=== PATIENT | female | born 1995 | race Caucasian/White ===

== ENCOUNTER 2017-02-06 16:53 | Emergency (ER) | payer OTHER ==
[~2017-02-06] VITALS: Ht 172.7 cm; Wt 70.0 kg
[2017-02-06 17:00] VITALS: TEMP 36.6; Ht 172.7 cm; Wt 70.0 kg
--- NOTE | 2017-02-06 17:49 | EMERGENCY ROOM VISIT NOTE ---
History Report prepared by Valentine: Patricia Fowler Under the Supervision of: Dr. Devyn Brenner M.D. First contact with patient: 16:55 Stated Complaint: ALCOHOL OVERDOSE History of Present Illness The patient is a 21 year old female who presents to the Emergency Room with complaints of an episode of alcohol intoxication occurring prior to arrival. The patient states that she was at the game with her boyfriend. She denies vomiting and being hurt today. The patient's boyfriend reports that they were out tailgating with friends and were drinking. He reports that when they walked to the stadium he noticed she was getting worse. He states that once they got in the stadium he lost her for a little due to the crowd. He states that he found her and decided to take her home. He reports that on the walk home she was getting worse. He denies the patient vomiting. History limited secondary to alcohol intoxication. Source of History: patient, spouse/significant other History Limited By: intoxication Onset: prior to arrival Position: other (global) Quality: other (global) Timing: other (episode) Review of Systems ROS unattainable secondary to alcohol intoxication. Past Medical & Surgical Medical Problems: (1) No Known Active Medical Problems Family History No pertinent family history Social History Alcohol Use: occasionally Marital Status: in relationship Housing Status: lives with roommate Occupation Status: [employer] student Current/Historical Medications Unable to Obtain Active Prescriptions or Reported Meds Physical Exam Vital Signs Date Time Temp Pulse Resp B/P (MAP) Pulse Ox O2 Delivery O2 Flow Rate FiO2 02/06/17 21:46 65 16 101/59 99 02/06/17 20:10 59 16 98/49 99 Room Air 02/06/17 19:37 74 02/06/17 18:27 63 18 88/55 99 Room Air 02/06/17 17:50 64 16 92/44 98 Room Air 02/06/17 17:00 36.6 130 18 150/108 99 Room Air Physical Exam GENERAL: Patient is in no acute distress. Smells of alcohol. Tearful and upset. HEENT: No acute trauma, normocephalic atraumatic, mucous membranes moist, no nasal congestion, no scleral icterus. Pupils equal and reactive to light. No obvious head trauma. NECK: No stridor, no adenopathy, no meningismus, trachea is midline. LUNGS: Clear to auscultation bilaterally, no wheeze, no rhonchi, breath sounds equal. HEART: Mildly tachycardic, no murmurs, rhythm is regular.. ABDOMEN: Soft, nontender, bowel sounds positive, no hernias, no peritonitis. EXTREMITIES: No cyanosis or edema, full range of motion of all the joints without pain or difficulty, no signs for acute trauma. NEUROLOGIC: Moderately intoxicated with alcohol, no acute motor or sensory deficits, no focal weakness. SKIN: No rash, no jaundice, no diaphoresis. Medical Decision & Procedures Laboratory Results 02/06/17 18:19 Test 02/06/17 18:19 Anion Gap 9.0 mmol/L (3-11) Est Creatinine Clear Calc Drug Dose 117.0 ml/min Estimated GFR () 127.7 Estimated GFR (Non- 110.2 BUN/Creatinine Ratio 11.8 (10-20) Calcium Level 8.6 mg/dl (8.5-10.1) Human Chorionic Gonadotropin, Qual NEG (NEG) Ethyl Alcohol mg/dL 208.0 mg/dl (0-3) Laboratory results reviewed by me. ED Course 1656: The patient was evaluated in room B12B. A complete history and physical exam was performed. 1754: The patient is asleep and cannot be woken up. Due to use of alcohol, we are going to run labs on the patient. 2127: Reevaluated the patient. Discussed results and discharge instructions: she verbalized understanding and agreement. The patient is ready for discharge. Medical Decision Differential diagnoses include head trauma, alcohol or drug abuse, dehydration, vomiting, alcohol overdose, aspiration. The patient presents with an alcohol overdose. No trauma reported. No vomiting. Alcohol level is around 200, consistent with her history. No significant electrolyte abnormality or kidney failure, testing is negative. The patient initially was awake and anxious and upset. Within about a half an hour, she fell asleep and was more difficult to arouse. I did not feel comfortable with discharge in the care of her boyfriend. Further observation was required. The patient was watched in the emergency room on the cardiac and pulse ox monitor. Her alcohol was allowed to clear with time. Now that she is more awake and alert, she can be discharged. Her history is consistent with an alcohol overdose. Impression Primary Impression: Alcohol overdose Scribe Attestation The scribe's documentation has been prepared under my direction and personally reviewed by me in its entirety. I confirm that the note above accurately reflects all work, treatment, procedures, and medical decision making performed by me. Departure Information Dispostion Home / Self-Care Prescriptions Unable to Obtain Active Prescriptions or Reported Meds Forms HOME CARE DOCUMENTATION FORM, IMPORTANT VISIT INFORMATION Additional Instructions do not use alcohol in excess rest fluids tylenol for pain alcohol level today was around 200---80 is the legal limit to drive
[2017-02-06 19:00] LABS: PREG INTERNAL NEGATIVE QC NEG CLEAR BACKGROUND; PREG INTERNAL POSITIVE QC POS CONTROL LINE
[2017-02-06 19:01] LABS: BUN/CREATININE RATIO 11.8 (10-20); CALCIUM 8.6 mg/dl (8.5-10.1); CREATININE 0.78 mg/dl (0.60-1.20); POTASSIUM 3.6 mmol/L (3.5-5.1)
[2017-02-06 21:46] VITALS: BP 101/59; PULSE 65; O2SAT 99
== END 2017-02-06 21:48 | disposition home or self-care (01) ==
LOC: EDBD 16:53 → C.EDB 16:55
DX: F10.129 Alcohol abuse with intoxication, unspecified (principal)